=== PATIENT | male | born 1950 | race Caucasian/White ===

== ENCOUNTER 2017-12-26 07:21 | Day surgery (SDC) | payer MEDICARE, MEDICAID ==
[~2017-12-26] VITALS: Ht 170.2 cm; Wt 71.7 kg
[~2017-12-26 07:21] MED LIST: BACL-141 PO; DOXA4TAB2 PO; FLUT1AER IH; GABA800T PO; HYDR25TA PO; LOSA50TA20 PO; NORT25CA PO; OXYC-100 PO; TAMS-11 PO
[2017-12-26] MEDS ORDERED: LACTATED RINGERS 1,000 ML IV SCH (08:00)
[2017-12-26] MEDS ORDERED: BUPIVACAINE HCL 0.5% (5MG/ML) 50ML ONE (09:10)
[2017-12-26] MEDS ORDERED: BUPIVACAINE HCL/EPINEPHRINE 0.5%/0.0005 30ML ONE (09:27)
[2017-12-26] MEDS ORDERED: FENTANYL CITRATE/PF 50MCG/ML 2ML VIAL ONE (09:45)
[2017-12-26] MEDS ORDERED: METOCLOPRAMIDE HCL 10MG/2ML VIAL ONE (09:45)
[2017-12-26] MEDS ORDERED: PROPOFOL 200MG/20ML VIAL IV ONE (09:45)
[2017-12-26] MEDS ORDERED: MIDAZOLAM HCL 2 MG/2 ML VIAL ONE (09:45)
[2017-12-26] MEDS ORDERED: SUCCINYLCHOLINE CHLORIDE 200MG/10ML VIAL IV ONE (09:45)
[2017-12-26] MEDS ORDERED: EPHEDRINE SULFATE 50MG/ML VIAL ONE (09:45)
[2017-12-26] MEDS ORDERED: ONDANSETRON HCL 4MG/2ML VIAL ONE (09:45)
[2017-12-26] MEDS ORDERED: GLYCOPYRROLATE 0.2 MG/ML 2ML VIAL ONE (09:45)
[2017-12-26] MEDS ORDERED: LIDOCAINE HCL/PF 1% 10 MG/ML 5ML VIAL ONE (09:45)
[2017-12-26] MEDS ORDERED: SODIUM CHLORIDE 0.9% 1,000 ML IV ONE (10:11)
[2017-12-26] MEDS ORDERED: ONDANSETRON HCL 4MG/2ML VIAL IV PRN (10:15)
[2017-12-26] MEDS ORDERED: MEPERIDINE HCL/PF 25MG/ML CPJ IV PRN (10:15)
[2017-12-26] MEDS ORDERED: HYDROMORPHONE HCL/PF 2MG/ML CPJ IV PRN (10:15)
[2017-12-26] MEDS ORDERED: MULT-1146 PO (11:22)
[2017-12-26] MEDS ORDERED: ASCO500C15 PO (11:22)
[2017-12-26] MEDS ORDERED: ERGO400C PO (11:22)
== END 2017-12-26 12:45 | disposition home or self-care (01) ==
LOC: OR 07:21
PROVIDERS: ATTEND Surgery
DX: C20 Malignant neoplasm of rectum (principal); I11.0 Hypertensive heart disease with heart failure; I50.9 Heart failure, unspecified; F32.9 Major depressive disorder, single episode, unspecified; J44.9 Chronic obstructive pulmonary disease, unspecified; N40.0 Benign prostatic hyperplasia without lower urinary tract symptoms; Z79.891 Long term (current) use of opiate analgesic; Z86.73 Personal history of transient ischemic attack (TIA), and cerebral infarction without residual deficits; Z79.899 Other long term (current) drug therapy; Z88.0 Allergy status to penicillin; Z88.8 Allergy status to other drugs, medicaments and biological substances
CPT/HCPCS: 45171; 88307; 93005; J0330; J2250; J2405; J2765; J3010; J3490; J7120; J0171; J2704